=== PATIENT | female | born 1960 | race Caucasian/White ===

== ENCOUNTER 2016-07-15 10:25 | Outpatient (CLI) | payer MEDICARE, OTHER, MEDICAID ==
[2016-07-15 14:22] LABS: BILIRUBIN,URINE NEGATIVE (NEGATIVE)
[2016-07-15 14:25] LABS: UA w/ MICROSCOPIC CHARGE YES
[2016-07-15 14:36] LABS: UR CULTURE IF IND NOT INDICATED; WBC,URINE >25 /HPF (0-5)
== END 2016-07-15 10:26 | disposition home or self-care (01) ==
LOC: LAB.R 10:25
PROVIDERS: ATTEND Physician Assistant Medical
DX: R41.82 Altered mental status, unspecified (principal)
CPT/HCPCS: 81001; 81003; 87086

== ENCOUNTER 2016-12-03 09:01 | Outpatient (CLI) | payer MEDICARE, OTHER, MEDICAID ==
[2016-12-03 09:32] LABS: BASOPHILS % (AUTO) 0.4 %; EOSINOPHILS # (AUTO) 0.1 10^3/uL (0.0-0.7); EOSINOPHILS % (AUTO) 1.1 %; HCT - HEMATOCRIT 39.7 % (37.0-47.0); HGB - HEMOGLOBIN 13.3 g/dL (12.0-16.0); LYMPHOCYTES # (AUTO) 2.3 10^3/uL (1.5-3.5); LYMPHOCYTES % (AUTO) 24.2 %; MEAN CORPUSCULAR HGB CONC 33.5 g/dL (32.0-36.0); MEAN CORPUSCULAR VOLUME 92.6 fL (81.0-99.0); MEAN PLATELET VOLUME 7.4 fL (7.9-10.8); MONOCYTES # (AUTO) 0.8 10^3/uL (0.0-1.0); MONOCYTES % (AUTO) 8.2 %; NEUTROPHILS # (AUTO) 6.2 10^3/uL (1.5-6.6); NEUTROPHILS % (AUTO) 66.1 %; NUCLEATED RED BLOOD CELLS AUTO 0.1 /100WBC; RED BLOOD COUNT 4.29 10^6/uL (4.20-5.40); RED CELL DISTRIBUTION WIDTH 13.7 % (12.0-15.0); UNCORRECTED WHITE BLOOD COUNT 9.3 x10^3/uL; WHITE BLOOD COUNT 9.3 x10^3/uL (4.8-10.8)
[2016-12-03 09:45] LABS: PLATELET MORPHOLOGY PLATELET CLUMPING (NORMAL)
[2016-12-03 09:52] LABS: ALBUMIN/GLOBULIN RATIO 1.4 (1.0-2.2); BILIRUBIN,TOTAL 0.4 mg/dL (0.2-1.0); BUN - BLOOD UREA NITROGEN 10 mg/dL (6-20); CALCIUM 8.8 mg/dL (8.5-10.3); CARBON DIOXIDE - CO2 29 mmol/L (21-32); CHLORIDE 99 mmol/L (101-111); CHOL/HDL RATIO 4.8 (<4.4); CHOLESTEROL 197 mg/dL; CREATININE 0.8 mg/dL (0.4-1.0); GFR - MDRD 74 (>89); GLUCOSE 124 mg/dL (70-100); HDL CHOLESTEROL 41 mg/dL; LDL/HDL RATIO 2.6 (<4.4); POTASSIUM 4.8 mmol/L (3.5-5.0); SODIUM 138 mmol/L (135-145); TOTAL PROTEIN 7.4 g/dL (6.7-8.2); TRIGLYCERIDES 254 mg/dL; VLDL CHOLESTEROL 51 mg/dL
== END 2016-12-03 09:02 | disposition home or self-care (01) ==
LOC: LAB 09:01
PROVIDERS: ATTEND Physician Assistant Medical
DX: M81.0 Age-related osteoporosis without current pathological fracture (principal); R73.9 Hyperglycemia, unspecified; E78.2 Mixed hyperlipidemia; Z79.899 Other long term (current) drug therapy; K59.09 Other constipation
CPT/HCPCS: 36415; 80053; 80061; 82306; 84443; 85025

== ENCOUNTER 2017-02-20 10:18 | Outpatient (CLI) | payer MEDICARE, OTHER, MEDICAID ==
--- NOTE | 2017-02-24 11:46 | XRAY Report ---
DATE OF SERVICE: 02/20/2017 THREE VIEW LEFT HAND: 02/20/2017 CLINICAL INDICATION: Pain. FINDINGS: AP, lateral, oblique views of the left hand demonstrate no evidence of fracture or disloca tion. The joint spaces are preserved. No radiopaque foreign body is seen in the soft tissues. IMPRESSION: Normal left hand. TD: 02/20/2017 21:51
== END 2017-02-20 10:19 | disposition home or self-care (01) ==
LOC: DI 10:18
PROVIDERS: ATTEND Physician Assistant Medical
DX: M79.642 Pain in left hand (principal)

== ENCOUNTER 2017-03-03 09:50 | Outpatient (CLI) | payer MEDICARE, OTHER, MEDICAID ==
[2017-03-03 10:37] LABS: CHOL/HDL RATIO 4.2 (<4.4); CHOLESTEROL 198 mg/dL; GLUCOSE,FASTING 117 mg/dL (70-100); HDL CHOLESTEROL 47 mg/dL; LDL CHOLESTEROL,CALCULATED 124 mg/dL; LDL/HDL RATIO 2.6 (<4.4); VLDL CHOLESTEROL 27 mg/dL
[2017-03-03 10:42] LABS: HB2 TOTAL 13.8 g/dL; HEMOGLOBIN A1C 0.54 g/dL; HEMOGLOBIN A1C % 5.7 % (4.6-6.2)
== END 2017-03-03 09:51 | disposition home or self-care (01) ==
LOC: LAB 09:50
PROVIDERS: ATTEND Physician Assistant Medical
DX: R73.9 Hyperglycemia, unspecified (principal); Z79.899 Other long term (current) drug therapy; E78.2 Mixed hyperlipidemia
CPT/HCPCS: 36415; 80061; 82947; 83036

== ENCOUNTER 2017-03-16 13:28 | Emergency (ER) | payer MEDICARE, OTHER, MEDICAID ==
[2017-03-16] MEDS ORDERED: AZITHROMYCIN 250 MG TABLET PO STA (15:13)
--- NOTE | 2017-03-16 15:16 | ED Physician Documentation ---
History of Present Illness - Stated complaint Stated Complaint: FEVER/DIARRHEA - Chief complaint Chief Complaint: Fever - History obtained from History obtained from: Caregiver - History of Present Illness Timing: Other (56-year-old woman with congenital abnormalities, autism, heart defect presents with 3 days of diarrhea which is gone since taking Imodium last night associated with "low-grade fevers" with a maximum temperature of 99.1. There is no vomiting or recent travel or antibiotic use.) Review of Systems Constitutional: denies: Fever GI: reports: Diarrhea. denies: Abdominal Pain, Nausea, Vomiting, Bloody / black stool PD PAST MEDICAL HISTORY - Past Medical History Neuro: Seizure disorder HEENT: Chronic hearing loss, Other Musculoskeletal: Osteoarthritis - Present Medications Home Medications: Ambulatory Orders Medication Instructions Recorded Confirmed Calcium Carbonate/Vitamin D3 1 tab BID 04/01/14 04/01/14 [Os-Pablito 500+D Tablet Chewable] Cholecalciferol (Vitamin D3) 1 tab DAILY 04/01/14 04/01/14 [Vitamin D-3] Docusate Sodium 100Mg Capsule 1 tab BID 04/01/14 04/01/14 [Colace] Flaxseed [Flaxseed Oil] 1 tab DAILY 04/01/14 04/01/14 LORazepam [Lorazepam] 1 tab DAILY 04/01/14 04/01/14 Melatonin 1 tab DAILY 04/01/14 04/01/14 Multivitamin [Multivitamins] 1 tab DAILY 04/01/14 04/01/14 Omeprazole [PriLOSEC] 20 mg DAILY 04/01/14 04/01/14 Pravastatin Sodium 1 tab DAILY 04/01/14 04/01/14 Risperidone 5 mg DAILY 04/01/14 04/01/14 Venlafaxine [Effexor] 75 mg DAILY 04/01/14 04/01/14 Azithromycin [Zithromax] 2 tab PO DAILY #4 tablet 03/16/17 - Allergies Allergies/Adverse Reactions: Allergies Allergy/AdvReac Type Severity Reaction Status Date / Time No Known Drug Allergies Allergy Verified 04/01/14 10:41 - Social History Does the pt smoke?: No Smoking Status: Never smoker Does the pt drink ETOH?: No Does the pt have substance abuse?: No - POLST Patient has POLST: Yes PD ED PE NORMAL - Vitals Vital signs reviewed: Yes - General General: Other (She is alert and cooperative, follows instructions, but she is nonverbal) - Cardiac Cardiac: RRR, Other (Loud machinelike systolic murmur) - Abdomen Abdomen: Normal bowel sounds, Soft, Non tender Results - Vitals Vitals: Vital Signs - 24 hr 03/16/17 13:31 Temperature 36.5 C Heart Rate 97 Respiratory 16 Rate Blood Pressure 142/79 H O2 Saturation 98 Oxygen O2 Source Room air PD MEDICAL DECISION MAKING - ED course ED course: 56-year-old woman with developmental delay and autism presents with low-grade temperatures and diarrhea with a benign exam and unremarkable vital signs here. Because of the particular issues inherent in her care, the caregiver felt that getting a stool sample would not be doable and it seemed reasonable to do 3 days of Zithromax for presumed infectious diarrhea. Departure - Departure Disposition: 01 Home, Self Care Clinical Impression: Diarrhea Qualifiers: Diarrhea type: presumed infectious Qualified Code(s): R19.7 - Diarrhea, unspecified Condition: Good Record reviewed to determine appropriate education?: Yes Instructions: ED Diarrhea Bacterial Prescriptions: Azithromycin [Zithromax] 2 tab PO DAILY #4 tablet Comments: Call your doctor to arrange a follow-up appointment, make the next available appointment. In the interim, return anytime if worse or if new symptoms develop. Your blood pressure was elevated today on check into the emergency department. This does not mean that you have hypertension, it is a common phenomenon to come to the emergency department and have elevated blood pressure. I recommend that you see your primary care physician within the week to have it rechecked when you are feeling better.
[2017-03-16 15:20] VITALS: BP 112/95
== END 2017-03-16 15:21 | disposition home or self-care (01) ==
LOC: ED 13:28
DX: R19.7 Diarrhea, unspecified (principal); R03.0 Elevated blood-pressure reading, without diagnosis of hypertension; F84.0 Autistic disorder
CPT/HCPCS: 99283; A9270

== ENCOUNTER 2017-04-08 11:00 | Outpatient (CLI) | payer MEDICARE, OTHER, MEDICAID | END 2017-04-08 11:01 | disposition home or self-care (01) | LOC: LAB.R 11:00 | PROVIDERS: ATTEND Nurse Practitioner Primary Care | DX: N30.00 Acute cystitis without hematuria (principal) | CPT/HCPCS: 87086 ==

== ENCOUNTER 2017-06-18 19:39 | Emergency (ER) | payer MEDICARE, OTHER, MEDICAID ==
--- NOTE | 2017-06-18 20:33 | ED Physician Documentation ---
PD HPI PED ILLNESS - Stated complaint Stated Complaint: FEVER/DIARRHEA - Chief complaint Chief Complaint: Resp - History obtained from History obtained from: Caregiver - History of Present Illness Timing - onset: Other (57-year-old woman with autism, deafness, seizure disorder. History from the caregiver. She has had a cough for a little over a week. She was seen by her physician a week ago and a Z-Greg was called in on Thursday. She has had a lot of sweats and has a persistent cough. She has been listless with fatigue and now today had 3 episodes of diarrhea this afternoon which have since stopped. She had a 100.3 fever earlier today.) Review of Systems Constitutional: reports: Fever, Fatigue, Sweats PD PAST MEDICAL HISTORY - Past Medical History Past Medical History: Yes Cardiovascular: Murmur, Other Neuro: Seizure disorder HEENT: Chronic hearing loss, Other Psych: Other Musculoskeletal: Osteoarthritis Other Past Medical History: Hx Endocarditis, Autism - Past Surgical History Past Surgical History: No - Present Medications Home Medications: Ambulatory Orders Medication Instructions Recorded Confirmed Calcium Carbonate/Vitamin D3 1 tab BID 04/01/14 04/01/14 [Os-Pablito 500+D Tablet Chewable] Cholecalciferol (Vitamin D3) 1 tab DAILY 04/01/14 04/01/14 [Vitamin D-3] Docusate Sodium 100Mg Capsule 1 tab BID 04/01/14 04/01/14 [Colace] Flaxseed [Flaxseed Oil] 1 tab DAILY 04/01/14 04/01/14 LORazepam [Lorazepam] 1 tab DAILY 04/01/14 04/01/14 Melatonin 1 tab DAILY 04/01/14 04/01/14 Multivitamin [Multivitamins] 1 tab DAILY 04/01/14 04/01/14 Omeprazole [PriLOSEC] 20 mg DAILY 04/01/14 04/01/14 Pravastatin Sodium 1 tab DAILY 04/01/14 04/01/14 Risperidone 5 mg DAILY 04/01/14 04/01/14 Venlafaxine [Effexor] 75 mg DAILY 04/01/14 04/01/14 Azithromycin [Zithromax] 2 tab PO DAILY #4 tablet 03/16/17 Doxycycline Hyclate 100 mg PO BID #14 tablet 06/18/17 Metronidazole [Flagyl] 500 mg PO TID #20 tablet 06/18/17 - Allergies Allergies/Adverse Reactions: Allergies Allergy/AdvReac Type Severity Reaction Status Date / Time No Known Drug Allergies Allergy Verified 06/18/17 19:47 - Social History Does the pt smoke?: No Smoking Status: Never smoker Does the pt drink ETOH?: No Does the pt have substance abuse?: No - Immunizations Immunizations are current?: Yes - POLST Patient has POLST: Yes PD ED PE NORMAL - Vitals Vital signs reviewed: Yes - General General: Other (She is alert and cooperative but nonverbal.) - Cardiac Cardiac: RRR, Other (4 out of 6, systolic murmur) - Respiratory Respiratory: No respiratory distress, Clear bilaterally - Abdomen Abdomen: Normal bowel sounds, Soft, Non tender - Back Back: No CVA TTP, No spinal TTP - Extremities Extremities: No edema, No calf tenderness / cord - Neuro Eye Opening: Spontaneous Motor: Obeys Commands Verbal: Confused GCS Score: 14 Results - Vitals Vitals: Vital Signs - 24 hr 06/18/17 06/18/17 19:41 21:26 Temperature 36.9 C 37.6 C H Heart Rate 106 H 94 Respiratory 22 20 Rate Blood Pressure 140/75 H 130/70 O2 Saturation 94 94 Oxygen O2 Source Room air - Labs Labs: Laboratory Tests 06/18/17 06/18/17 06/18/17 20:38 20:38 20:41 WBC 17.4 H RBC 4.04 L Hgb 12.1 Hct 36.8 L MCV 91.1 MCH 29.9 MCHC 32.9 RDW 13.4 Plt Count 347 MPV 7.0 L Neut # 13.3 H Lymph # 2.3 [place] # 1.6 H Eos # 0.1 Baso # 0.1 Absolute Nucleated RBC 0.00 Nucleated RBC % 0.0 Sodium 131 L Potassium 3.7 Chloride 94 L Carbon Dioxide 29 Anion Gap 8.0 BUN 6 Creatinine 0.8 Estimated GFR (MDRD) 74 L Glucose 139 H Calcium 8.6 Total Bilirubin 0.4 AST 24 ALT 24 Alkaline Phosphatase 110 Total Protein 8.0 Albumin 3.9 Globulin 4.1 Albumin/Globulin Ratio 1.0 Lipase 19 L Influenza A (Rapid) Negative Influenza B (Rapid) Negative - Rads (name of study) 2v chest Radiology: EMP read contemporaneously (Chronic cardiovascular fullness similar previous exam) PD MEDICAL DECISION MAKING - ED course ED course: 57-year-old woman with autism, develop mental delay and deafness presents with ongoing illness, predominantly respiratory with fever. Had 3 episodes of diarrhea today but none in the last 6 hours or so. C. difficile is considered, but given the relative limitation the diarrhea and no bowel movements here it is unlikely but hard to exclude completely. That said she has a prominent cough here and given the white count pneumonia is still considered in light of the x-ray read. The caregiver does admit that she occasionally aspirates, and I think I will broaden out her coverage for pneumonia to cover for more of an aspiration type issue, this may cover her for C. difficile as well although again I do not think she has that at this juncture. Departure - Departure Disposition: 01 Home, Self Care Clinical Impression: Pneumonia Qualifiers: Pneumonia type: aspiration pneumonia Aspiration pneumonia type: unspecified Laterality: unspecified laterality Lung location: unspecified part of lung Qualified Code(s): J69.0 - Pneumonitis due to inhalation of food and vomit Condition: Good Record reviewed to determine appropriate education?: Yes Instructions: Pneumonia Dc Prescriptions: Doxycycline Hyclate 100 mg PO BID #14 tablet Metronidazole [Flagyl] 500 mg PO TID #20 tablet Comments: Call your doctor to arrange a follow-up appointment, make the next available appointment. In the interim, return anytime if worse or if new symptoms develop.
[2017-06-18 20:44] LABS: BASOPHILS # (AUTO) 0.1 10^3/uL (0.0-0.1); BASOPHILS % (AUTO) 0.3 %; EOSINOPHILS # (AUTO) 0.1 10^3/uL (0.0-0.7); EOSINOPHILS % (AUTO) 0.3 %; HGB - HEMOGLOBIN 12.1 g/dL (12.0-16.0); LYMPHOCYTES # (AUTO) 2.3 10^3/uL (1.5-3.5); LYMPHOCYTES % (AUTO) 13.4 %; MEAN CORPUSCULAR HEMOGLOBIN 29.9 pg (27.0-31.0); MEAN CORPUSCULAR HGB CONC 32.9 g/dL (32.0-36.0); MEAN CORPUSCULAR VOLUME 91.1 fL (81.0-99.0); MONOCYTES # (AUTO) 1.6 10^3/uL (0.0-1.0); MONOCYTES % (AUTO) 9.3 %; NEUTROPHILS # (AUTO) 13.3 10^3/uL (1.5-6.6); NEUTROPHILS % (AUTO) 76.7 %; PLT - PLATELET COUNT 347 10^3/uL (130-450); RED BLOOD COUNT 4.04 10^6/uL (4.20-5.40); RED CELL DISTRIBUTION WIDTH 13.4 % (12.0-15.0); WHITE BLOOD COUNT 17.4 x10^3/uL (4.8-10.8)
[2017-06-18 20:56] LABS: ALBUMIN 3.9 g/dL (3.2-5.5); BILIRUBIN,TOTAL 0.4 mg/dL (0.2-1.0); CALCIUM 8.6 mg/dL (8.5-10.3); CREATININE 0.8 mg/dL (0.4-1.0)
[2017-06-18 21:26] VITALS: BP 130/70
--- NOTE | 2017-06-18 21:37 | XRAY Report ---
EXAM: CHEST RADIOGRAPHY EXAM DATE: 06/18/2017 09:16 PM. CLINICAL HISTORY: Cough. COMPARISON: 07/07/2013. TECHNIQUE: 2 views. FINDINGS: Lungs/Pleura: Chronic left effusion or thickening with underlying atelectasis or scarring. Mild inter stitial prominence generally. No definite right effusion or pneumothorax. Mediastinum: Moderate cardiomegaly, unchanged. Upper lobe vascular fullness. Other: None. IMPRESSION: Chronic cardiovascular fullness and other findings as described, similar to previous exam . Superimposed acute infiltrate difficult to exclude. [facility] Referring Provider Line: [phone] SITE ID: [id number]
[2017-06-18] MEDS ORDERED: DOXYCYCLINE 100 MG TABLET PO STA (21:45)
[2017-06-18] MEDS ORDERED: metroNIDAZOLE 250 MG TABLET PO STA (21:45)
== END 2017-06-18 21:56 | disposition home or self-care (01) ==
LOC: ED 19:39
DX: J69.0 Pneumonitis due to inhalation of food and vomit (principal); F84.0 Autistic disorder
CPT/HCPCS: 36415; 71046; 80053; 83690; 85025; 87275; 87276; 99283; A9270

== ENCOUNTER 2017-11-25 09:03 | Outpatient (CLI) | payer MEDICARE, OTHER, MEDICAID ==
[2017-11-25 09:52] LABS: BASOPHILS % (AUTO) 0.3 %; EOSINOPHILS # (AUTO) 0.1 10^3/uL (0.0-0.7); EOSINOPHILS % (AUTO) 1.4 %; HGB - HEMOGLOBIN 13.1 g/dL (12.0-16.0); LYMPHOCYTES # (AUTO) 1.8 10^3/uL (1.5-3.5); LYMPHOCYTES % (AUTO) 21.4 %; MEAN CORPUSCULAR HEMOGLOBIN 31.1 pg (27.0-31.0); MEAN CORPUSCULAR HGB CONC 33.9 g/dL (32.0-36.0); MEAN CORPUSCULAR VOLUME 91.6 fL (81.0-99.0); MEAN PLATELET VOLUME 7.7 fL (7.9-10.8); MONOCYTES # (AUTO) 0.6 10^3/uL (0.0-1.0); MONOCYTES % (AUTO) 6.8 %; NEUTROPHILS # (AUTO) 5.9 10^3/uL (1.5-6.6); NEUTROPHILS % (AUTO) 70.1 %; PLT - PLATELET COUNT 291 10^3/uL (130-450); RED BLOOD COUNT 4.22 10^6/uL (4.20-5.40); WHITE BLOOD COUNT 8.4 x10^3/uL (4.8-10.8)
[2017-11-25 09:58] LABS: ALBUMIN 4.1 g/dL (3.2-5.5); ALBUMIN/GLOBULIN RATIO 1.3 (1.0-2.2); ALKALINE PHOSPHATASE 123 IU/L (42-121); ALT ALANINE AMINOTRANSFERASE 31 IU/L (10-60); AST ASPARTATE AMINOTRANSFERASE 33 IU/L (10-42); BILIRUBIN,TOTAL 0.7 mg/dL (0.2-1.0); BUN - BLOOD UREA NITROGEN 7 mg/dL (6-20); CALCIUM 8.9 mg/dL (8.5-10.3); CARBON DIOXIDE - CO2 29 mmol/L (21-32); CHLORIDE 97 mmol/L (101-111); CHOL/HDL RATIO 5.3 (<4.4); CHOLESTEROL 210 mg/dL; CREATININE 0.8 mg/dL (0.4-1.0); GFR - MDRD 74 (>89); GLUCOSE 117 mg/dL (70-100); HDL CHOLESTEROL 40 mg/dL; LDL CHOLESTEROL,CALCULATED 126 mg/dL; LDL/HDL RATIO 3.2 (<4.4); SODIUM 135 mmol/L (135-145); TOTAL PROTEIN 7.3 g/dL (6.7-8.2); VLDL CHOLESTEROL 44 mg/dL
[2017-11-25 10:55] LABS: HB2 TOTAL 13.9 g/dL; HEMOGLOBIN A1C 0.62 g/dL; HEMOGLOBIN A1C % 6.2 % (4.6-6.2)
== END 2017-11-25 09:04 | disposition home or self-care (01) ==
LOC: LAB 09:03
PROVIDERS: ATTEND Physician Assistant Medical
DX: Z79.899 Other long term (current) drug therapy (principal); R73.9 Hyperglycemia, unspecified; E78.2 Mixed hyperlipidemia; M81.0 Age-related osteoporosis without current pathological fracture
CPT/HCPCS: 36415; 80053; 80061; 82306; 83036; 83721; 84443; 85025

== ENCOUNTER 2018-03-08 11:02 | Outpatient (CLI) | payer MEDICARE, OTHER, MEDICAID ==
[2018-03-08 12:20] LABS: ALBUMIN/GLOBULIN RATIO 1.2 (1.0-2.2); ALKALINE PHOSPHATASE 117 IU/L (42-121); ALT ALANINE AMINOTRANSFERASE 23 IU/L (10-60); AST ASPARTATE AMINOTRANSFERASE 23 IU/L (10-42); BILIRUBIN,TOTAL 0.6 mg/dL (0.2-1.0); BUN - BLOOD UREA NITROGEN 11 mg/dL (6-20); CALCIUM 8.7 mg/dL (8.5-10.3); CARBON DIOXIDE - CO2 29 mmol/L (21-32); CHLORIDE 102 mmol/L (101-111); CHOL/HDL RATIO 4.1 (<4.4); CHOLESTEROL 160 mg/dL; CREATININE 0.8 mg/dL (0.4-1.0); GFR - MDRD 74 (>89); GLUCOSE 114 mg/dL (70-100); HDL CHOLESTEROL 39 mg/dL; LDL CHOLESTEROL,CALCULATED 82 mg/dL; LDL/HDL RATIO 2.1 (<4.4); SODIUM 137 mmol/L (135-145); TOTAL PROTEIN 7.3 g/dL (6.7-8.2); VLDL CHOLESTEROL 39 mg/dL
== END 2018-03-08 11:03 | disposition home or self-care (01) ==
LOC: LAB 11:02
PROVIDERS: ATTEND Physician Assistant Medical
DX: Z79.899 Other long term (current) drug therapy (principal); R74.8 Abnormal levels of other serum enzymes; E78.2 Mixed hyperlipidemia
CPT/HCPCS: 36415; 80053; 80061; 83721

== ENCOUNTER 2021-12-11 08:00 | Outpatient (CLI) | payer MEDICARE, OTHER, MEDICAID | END 2021-12-11 23:59 | disposition home or self-care (01) | LOC: LAB.R 08:00 | PROVIDERS: ATTEND Family Medicine | DX: R30.0 Dysuria (principal) | CPT/HCPCS: 87086 ==

== ENCOUNTER 2022-05-14 15:18 | Emergency (ER) | payer MEDICARE, OTHER, MEDICAID ==
[2022-05-14 15:35] VITALS: BP 133/60
--- NOTE | 2022-05-14 17:23 | ED Physician Documentation ---
PD HPI HEAD INJURY - Stated complaint Stated Complaint: GLF/HEAD INJ - Chief complaint Chief Complaint: Trauma Hd/Nk - History obtained from History obtained from: Patient, Caregiver - Treatment prior to arrival Treatment prior to arrival: The patient is brought to the emergency department by her caregiver for chief complaint of head injury. The patient was apparently at the gym with another caregiver and accidentally leaned back too far on a seat and fell backwards. She hit her head on some piece of equipment behind her but immediately wanted to get back up and keep doing the activities. She has been acting like herself ever since this happened about 3 hours ago. The caregiver who is currently with her states that the patient has a small bump at the back of the top of her head but otherwise, no evidence of trauma. The patient has had no complaints whatsoever. Per protocol, they are supposed to bring the patient here for evaluation. The patient is nonverbal and deaf with autism, but can answer simple questions. She denies any other complaints at this time. PD PAST MEDICAL HISTORY - Past Medical History Cardiovascular: Murmur, Other HEENT: Chronic hearing loss, Other Psych: Other Musculoskeletal: Osteoarthritis - Past Surgical History Past Surgical History: No - Present Medications Home Medications: Ambulatory Orders Medication Instructions Recorded Confirmed Calcium Carbonate/Vitamin D3 1 tab BID 04/01/14 04/01/14 [Os-Pablito 500+D Tablet Chewable] Cholecalciferol (Vitamin D3) 1 tab DAILY 04/01/14 04/01/14 [Vitamin D-3] Docusate Sodium 100Mg Capsule 1 tab BID 04/01/14 04/01/14 [Colace] Flaxseed [Flaxseed Oil] 1 tab DAILY 04/01/14 04/01/14 LORazepam [Lorazepam] 1 tab DAILY 04/01/14 04/01/14 Melatonin 1 tab DAILY 04/01/14 04/01/14 Multivitamin [Multivitamins] 1 tab DAILY 04/01/14 04/01/14 Omeprazole [PriLOSEC] 20 mg DAILY 04/01/14 04/01/14 Pravastatin Sodium 1 tab DAILY 04/01/14 04/01/14 Risperidone 5 mg DAILY 04/01/14 04/01/14 Venlafaxine [Effexor] 75 mg DAILY 04/01/14 04/01/14 Azithromycin [Zithromax] 2 tab PO DAILY #4 tablet 03/16/17 Doxycycline Hyclate 100 mg PO BID #14 tablet 06/18/17 metroNIDAZOLE [Flagyl] 500 mg PO TID #20 tablet 06/18/17 - Allergies Allergies/Adverse Reactions: Allergies Allergy/AdvReac Type Severity Reaction Status Date / Time No Known Drug Allergies Allergy Verified 06/18/17 19:47 - Social History Does the pt smoke?: No Smoking Status: Never smoker Does the pt drink ETOH?: No Does the pt have substance abuse?: No - Immunizations Immunizations are current?: Yes - POLST Patient has POLST: Yes PD ED PE NORMAL - Vitals Vital signs reviewed: Yes - General General: No acute distress, Well developed/nourished, Other (Alert, calm; is able to indicate "yes" and "no" to caregiver in answer to some questions.) - HEENT HEENT: PERRL, EOMI, Moist mucous membranes, Other (Approximately who centimeter, tiny bump on the top of the patient's head on the posterior side. No skin breakage. No skull depression. No other injuries.) - Respiratory Respiratory: No respiratory distress - Derm Derm: Warm and dry - Extremities Extremities: No deformity - Neuro Neuro: Alert and oriented X 3 - Psych Psych: Normal mood, Normal affect Results - Vitals Vitals: Oxygen O2 Source Room air - Rads (name of study) CT head Relevant Findings:: Final report received, See rad report CT c-spine Relevant Findings:: Final report received, See rad report (no acute findings) PD Medical Decision Making - ED course Complexity details: reviewed results, re-evaluated patient, considered differential, other (Caregiver) ED course: The patient was sent for CT scan of the head. She was at baseline and fairly well-appearing, Considering her severe disability and she is her only sign of trauma was a very small lump on the apex of her head. I suspect that she had probably grazed a piece of equipment but there is no evidence of a hard direct trauma. I discussed with the caregiver that this injury is very low probability for any significant intracranial trauma. CT's were done and negative. We have discussed home management of sx and the usual indications for return. Departure - Departure Disposition: 01 Home, Self Care Clinical Impression: Closed head injury Qualifiers: Encounter type: initial encounter Qualified Code(s): S09.90XA - Unspecified injury of head, initial encounter Condition: Stable Instructions: ED Head Injury Closed Comments: The CT scans look good. There is no evidence of a serious injury. Please have Colleen follow-up with her doctor as needed. Discharge Date/Time: 05/14/22 17:41
--- NOTE | 2022-05-14 17:42 | CT Report ---
PROCEDURE: HEAD WO INDICATIONS: fall, head injury TECHNIQUE: Noncontrast 4.5 mm thick angled axial sections acquired from the foramen magnum to the vertex. For r adiation dose reduction, the following was used: automated exposure control, adjustment of mA and/or kV according to patient size. COMPARISON: None. FINDINGS: Image quality: Excellent. CSF spaces: Basal cisterns are patent. No extra-axial fluid collections. Ventricles are normal in size and shape. Brain: No midline shift. No intracranial masses or hemorrhage. Pruitt-white matter interface is norm al. Skull and face: No acute skull fracture is seen. Prior right frontal craniotomy is seen with postsurg ical changes. Sinuses: Visualized sinuses and mastoids are clear. IMPRESSION: 1. No CT evidence of acute intracranial bleed, midline shift or mass effect. 2. Prior right frontal craniotomy with postsurgical changes. No acute skull fracture. Reviewed by: Luis Mccullough MD on 05/14/2022 4:41 PM AKJEN Approved by: Luis Mccullough MD on 05/14/2022 4:41 PM AKDT Station ID: [id number]
--- NOTE | 2022-05-14 17:45 | CT Report ---
PROCEDURE: CERVICAL SPINE WO INDICATIONS: fall, neck injury TECHNIQUE: Noncontrast 3 mm thick sections acquired from the skull base to the T4 level. Sagittal and coronal r eformats were then constructed. For radiation dose reduction, the following was used: automated exp osure control, adjustment of mA and/or kV according to patient size. COMPARISON: None. FINDINGS: Image quality: Excellent. Bones: No fractures or dislocations. There is bony union between anterior arch of C1 and dens. Loss of disc height, degenerative endplate changes and bilateral facet hypertrophic changes are noted thro ughout cervical spine causing [id number] central canal stenosis and bilateral neural foraminal. . Visualized superior ribs are intact. Soft tissues: Prevertebral soft tissues are normal in thickness. No paravertebral hematomas. No ap ical pneumothoraces. IMPRESSION: 1. No acute cervical spine fracture or dislocation. 2. Degenerative disc disease throughout cervical spine. 3. Bony fusion involving dense and anterior arch of C1. Reviewed by: Luis Mccullough MD on 05/14/2022 4:43 PM NICK Approved by: Luis Mccullough MD on 05/14/2022 4:43 PM AKDT Station ID: [id number]
== END 2022-05-14 17:41 | disposition home or self-care (01) ==
LOC: ED 15:18
DX: S09.90XA Unspecified injury of head, initial encounter (principal); W07.XXXA Fall from chair, initial encounter; Y92.39 Other specified sports and athletic area as the place of occurrence of the external cause; Z79.899 Other long term (current) drug therapy
CPT/HCPCS: 99283; 99284

== ENCOUNTER 2022-09-18 10:57 | Outpatient (CLI) | payer MEDICARE, OTHER, MEDICAID ==
[2022-09-18 11:16] LABS: BASOPHILS % (AUTO) 0.3 %; EOSINOPHILS # (AUTO) 0.1 10^3/uL (0.0-0.7); EOSINOPHILS % (AUTO) 0.7 %; HCT - HEMATOCRIT 39.3 % (37.0-47.0); HGB - HEMOGLOBIN 12.5 g/dL (12.0-16.0); LYMPHOCYTES # (AUTO) 1.7 10^3/uL (1.5-3.5); LYMPHOCYTES % (AUTO) 24.5 %; MEAN CORPUSCULAR HEMOGLOBIN 31.3 pg (27.0-31.0); MEAN CORPUSCULAR HGB CONC 31.8 g/dL (32.0-36.0); MEAN CORPUSCULAR VOLUME 98.3 fL (81.0-99.0); MEAN PLATELET VOLUME 9.3 fL (7.9-10.8); MONOCYTES # (AUTO) 0.4 10^3/uL (0.0-1.0); MONOCYTES % (AUTO) 6.1 %; NEUTROPHILS # (AUTO) 4.7 10^3/uL (1.5-6.6); NEUTROPHILS % (AUTO) 68.3 %; PLT - PLATELET COUNT 233 10^3/uL (130-450); RED CELL DISTRIBUTION WIDTH 12.6 % (12.0-15.0); WHITE BLOOD COUNT 6.9 x10^3/uL (4.8-10.8)
[2022-09-18 11:31] LABS: ALBUMIN 4.3 g/dL (3.2-5.5); ALBUMIN/GLOBULIN RATIO 1.7 (1.0-2.2); ALKALINE PHOSPHATASE 96 IU/L (42-121); ALT ALANINE AMINOTRANSFERASE 25 IU/L (10-60); AST ASPARTATE AMINOTRANSFERASE 26 IU/L (10-42); BILIRUBIN,TOTAL 0.4 mg/dL (0.2-1.0); BUN - BLOOD UREA NITROGEN 10 mg/dL (6-20); CALCIUM 9.4 mg/dL (8.5-10.3); CARBON DIOXIDE - CO2 34 mmol/L (21-32); CHLORIDE 101 mmol/L (101-111); CHOL/HDL RATIO 3.8 (<4.4); CHOLESTEROL 152 mg/dL; CREATININE 1.1 mg/dL (0.6-1.3); GFR - MDRD 50 (>89); GLUCOSE 112 mg/dL (74-104); HDL CHOLESTEROL 40 mg/dL; LDL CHOLESTEROL,CALCULATED 83 mg/dL; LDL/HDL RATIO 2.1 (<4.4); POTASSIUM 4.5 mmol/L (3.5-4.5); SODIUM 139 mmol/L (135-145); TOTAL PROTEIN 6.8 g/dL (6.4-8.9); TRIGLYCERIDES 145 mg/dL (48-352); VLDL CHOLESTEROL 29 mg/dL
[2022-09-18 11:48] LABS: THYROID STIMULATING HORMONE 1.82 uIU/mL (0.34-5.60)
[2022-09-18 12:56] LABS: ESTIMATED AVERAGE GLUCOSE 120 mg/dL (70-100); HEMOGLOBIN A1c% 5.8 % (4.27-6.07)
== END 2022-09-18 10:58 | disposition home or self-care (01) ==
LOC: LAB 10:57
PROVIDERS: ATTEND Family Medicine
DX: N32.81 Overactive bladder (principal); R73.9 Hyperglycemia, unspecified; E78.2 Mixed hyperlipidemia; Q96.9 Turner's syndrome, unspecified; F84.5 Asperger's syndrome
CPT/HCPCS: 36415; 80053; 80061; 83036; 83721; 84443; 85025

== ENCOUNTER 2023-08-07 15:21 | Outpatient (CLI) | payer MEDICARE, OTHER, MEDICAID ==
--- NOTE | 2023-08-07 17:57 | XRAY Report ---
PROCEDURE: Chest 2V INDICATIONS: BRONCHITIS TECHNIQUE: 2 views of the chest were acquired. COMPARISON: 06/18/2017 FINDINGS: Surgical changes and devices: None. Lungs and pleura: Coarse interstitial markings are present bilaterally. There is an opacity in the l ingula causing no meniscus sign along the lateral left chest wall, similar compared to the prior exam . No posteriorly layering pleural effusion. No new dense consolidation. Mediastinum: Stable moderate cardiomegaly. Stable mediastinal contour. Small hiatal hernia. Bones and chest wall: No suspicious bony lesions. Degenerative changes in both shoulders. Overlying soft tissues appear unremarkable. IMPRESSION: Chronic diffuse interstitial prominence, similar compared to remote prior exam. Chronic left anterior pleural thickening or effusion. Stable cardiomegaly. Reviewed by: Shweta Lake MD on 08/07/2023 5:56 PM PDT Approved by: Shweta Lake MD on 08/07/2023 5:56 PM PDT Station ID: [id number]
== END 2023-08-07 15:22 | disposition home or self-care (01) ==
LOC: DI 15:21
PROVIDERS: ATTEND Emergency Medicine
DX: J40 Bronchitis, not specified as acute or chronic (principal); I51.7 Cardiomegaly

== ENCOUNTER 2023-08-19 10:32 | Outpatient (CLI) | payer MEDICARE, OTHER, MEDICAID ==
[2023-08-19 10:54] LABS: BASOPHILS % (AUTO) 0.4 %; EOSINOPHILS # (AUTO) 0.1 10^3/uL (0.0-0.7); EOSINOPHILS % (AUTO) 1.2 %; HCT - HEMATOCRIT 38.8 % (37.0-47.0); HGB - HEMOGLOBIN 12.3 g/dL (12.0-16.0); LYMPHOCYTES % (AUTO) 25.8 %; MEAN CORPUSCULAR HEMOGLOBIN 31.4 pg (27.0-31.0); MEAN CORPUSCULAR HGB CONC 31.7 g/dL (32.0-36.0); MEAN PLATELET VOLUME 9.2 fL (7.9-10.8); MONOCYTES # (AUTO) 0.4 10^3/uL (0.0-1.0); MONOCYTES % (AUTO) 5.5 %; NEUTROPHILS # (AUTO) 5.2 10^3/uL (1.5-6.6); NEUTROPHILS % (AUTO) 66.8 %; PLT - PLATELET COUNT 283 10^3/uL (130-450); RED BLOOD COUNT 3.92 10^6/uL (4.20-5.40); RED CELL DISTRIBUTION WIDTH 13.2 % (12.0-15.0); WHITE BLOOD COUNT 7.8 x10^3/uL (4.8-10.8)
[2023-08-19 11:03] LABS: ALBUMIN 4.2 g/dL (3.2-5.5); ALBUMIN/GLOBULIN RATIO 1.5 (1.0-2.2); ALKALINE PHOSPHATASE 112 IU/L (42-121); ALT ALANINE AMINOTRANSFERASE 21 IU/L (10-60); AST ASPARTATE AMINOTRANSFERASE 21 IU/L (10-42); BILIRUBIN,TOTAL 0.4 mg/dL (0.2-1.0); BUN - BLOOD UREA NITROGEN 10 mg/dL (6-20); CALCIUM 9.1 mg/dL (8.5-10.3); CARBON DIOXIDE - CO2 31 mmol/L (21-32); CHLORIDE 103 mmol/L (101-111); CHOL/HDL RATIO 3.6 (<4.4); CHOLESTEROL 160 mg/dL; CREATININE 0.9 mg/dL (0.6-1.3); GFR - MDRD 63 (>89); GLUCOSE 108 mg/dL (74-104); HDL CHOLESTEROL 44 mg/dL; LDL CHOLESTEROL,CALCULATED 71 mg/dL; LDL/HDL RATIO 1.6 (<4.4); POTASSIUM 4.1 mmol/L (3.5-4.5); SODIUM 139 mmol/L (135-145); TRIGLYCERIDES 226 mg/dL (48-352); VLDL CHOLESTEROL 45 mg/dL
[2023-08-19 11:12] LABS: ESTIMATED AVERAGE GLUCOSE 114 mg/dL (70-100); HEMOGLOBIN A1c% 5.6 % (4.27-6.07)
[2023-08-19 11:17] LABS: THYROID STIMULATING HORMONE 2.01 uIU/mL (0.34-5.60)
[2023-08-19 15:45] LABS: BILIRUBIN,URINE NEGATIVE (NEGATIVE); GLUCOSE, URINE (UA) 500 mg/dL (NEGATIVE); KETONES,URINE (UA) NEGATIVE (NEGATIVE); LEUKOCYTE ESTERASE, URINE SMALL (NEGATIVE); NITRITE,URINE NEGATIVE (NEGATIVE); OCCULT BLOOD,URINE TRACE-INTA (NEGATIVE); PROTEIN,URINE NEGATIVE (NEGATIVE); UROBILINOGEN,URINE 0.2 (NORMAL) E.U./dL (NORMAL)
[2023-08-19 16:18] LABS: BACTERIA,URINE Rare /HPF (None Seen); CLARITY,URINE CLEAR (CLEAR); RBC,URINE None Seen /HPF (0-5); SQUAMOUS EPITHELIAL CELL,UR RARE Squamous (<= Few)
== END 2023-08-19 10:33 | disposition home or self-care (01) ==
LOC: LAB 10:32
PROVIDERS: ATTEND Family Medicine
DX: N30.00 Acute cystitis without hematuria (principal); R32 Unspecified urinary incontinence; F41.9 Anxiety disorder, unspecified; F32.A Depression, unspecified; P11.3 Birth injury to facial nerve; R01.1 Cardiac murmur, unspecified; R74.8 Abnormal levels of other serum enzymes; N32.81 Overactive bladder; E66.3 Overweight; R73.9 Hyperglycemia, unspecified; E78.2 Mixed hyperlipidemia; Q96.9 Turner's syndrome, unspecified
CPT/HCPCS: 36415; 80053; 80061; 81001; 83036; 83721; 84443; 85025; 87086

== ENCOUNTER 2023-10-08 12:13 | Outpatient (CLI) | payer MEDICARE, OTHER, MEDICAID | END 2023-10-08 12:14 | disposition home or self-care (01) | LOC: LAB 12:13 | PROVIDERS: ATTEND Urology | DX: R31.9 Hematuria, unspecified (principal); R32 Unspecified urinary incontinence | CPT/HCPCS: 87086 ==